=== PATIENT | female | born 1990 | race Caucasian/White ===

== ENCOUNTER 2017-06-10 23:49 | Emergency (ER) | payer OTHER ==
--- NOTE | 2017-06-11 00:20 | PD ---
HPI Chief Complaint Right into the cavity with her stomach Date Seen: Jun 11, 2017 Time Seen: 00:15 Travel History International Travel<30 Days: No Contact w/Intl Traveler<30Days: No Known Affected Area: No History of Present Illness HPI 27-year-old female at 34 weeks 5 days is being seen due to trauma to her abdomen earlier tonight. At approximately 11:30 PM patient ran into an open cabinet door which hit her on the right side of her abdomen. Denies any other trauma and she did not fall. Patient denies any abrasion of the skin or any other injury. Patient has had an uncomplicated and denies any antepartum complications. Patient is experiencing good movement since she 's been here in labor and delivery, denies vaginal bleeding. Para: 1 : 3 History Past Medical History Medical History: Denies Significant Hx Obstetric History Obstetric History Spontaneous vaginal delivery Past Surgical History Narrative Surgical LEEP Family History Family History: Negative Social History Alcohol Use: No Tobacco Use: No Substance Abuse: No Allergies-Medications (Allergen,Severity, Reaction): Coded Allergies: No Known Allergies (Unverified , 11/29/15) Home Meds No Active Prescriptions or Reported Meds Review of Systems Except as stated in HPI: all other systems reviewed are Neg Physical Exam Narrative GENERAL: Well-nourished, well-developed patient. SKIN: Warm and dry. HEAD: Normocephalic and atraumatic. NECK: Supple, trachea midline. No JVD. ABDOMEN/GI: Abdomen soft, non-tender, bowel sounds present, no rebound, no guarding. No trauma or abrasions noted to the abdomen Gravid to [-27] weeks size Fundal Height: [-] GENITOURINARY: External Genitalia: intact and normal in appearance BUS glands: [-] Vaginal exam is deferred Cervix: [-] Dilatation: [-] Effacement: [-] Station: [-] Presentation: [-] Membranes: [intact or ruptured] Uterine Contractions: [-] Single contraction noted FHT's: Category: [1-] Baseline: [-140] Reactive: [Moderate-] Variability: [-Moderate] Decels: [-Absent] EXTREMITIES: No cyanosis or edema. BACK: Nontender without obvious deformity. No CVA tenderness. NEUROLOGICAL: Awake and alert. Motor and sensory grossly within normal limits. Five out of 5 muscle strength in all muscle groups. Normal speech. Data Data Vital Signs Reviewed: Yes MDM Plan 27-year-old female who is at 34 weeks 5 days who experienced mild trauma tonight when running into a cabinet Nonstress test is noted to be reassuring with a category 1 tracing No contractions are noted on the external toco Discussed with patient any concerning symptoms within the next 24 hours to include vaginal bleeding, abdominal pain, contractions, or decreased movement Diagnosis Diagnosis: Primary Impression: 34 weeks gestation of Additional Impression: with abdominal wall injury, antepartum Disposition: DISCHARGE HOME Scripts No Active Prescriptions or Reported Meds Patient Instructions: General Instructions, Labor (ED), Abdominal Pain in (ED) Additional Instructions: RETURN FOR CONTRACTIONS, LOSS OF FLUID (WATER BREAKING), VAGINAL BLEEDING, OR DECREASED MOVEMENT DRINK 8-10 LARGE GLASSES OF WATER EVERY DAY KEEP SCHEDULED APPOINTMENT WITH YOUR PROVIDER Departure Forms: Tests/Procedures Jael Rothman MD Jun 11, 2017 00:20
== END 2017-06-11 00:36 | disposition home or self-care (01) ==
LOC: HOBED 23:49
DX: S39.91XA Unspecified injury of abdomen, initial encounter (principal); Z3A.34 34 weeks gestation of pregnancy; W22.03XA Walked into furniture, initial encounter; Z34.93 Encounter for supervision of normal pregnancy, unspecified, third trimester
CPT/HCPCS: 59025

== ENCOUNTER 2017-07-03 22:44 | Inpatient (IN) | payer OTHER ==
[2017-07-03] MEDS: LACTATED RINGER'S 1000 ML INJ 1,000 ML IV SCH (23:31)
[2017-07-03] MEDS ORDERED: LACTATED RINGER'S 1000 ML INJ 1,000 ML IV PRN (23:31)
[2017-07-03] MEDS ORDERED: LIDOCAINE HCL 1% 50 ML VIAL INFIL PRN (23:45)
[2017-07-03] MEDS ORDERED: MINERAL OIL 10 ML VIAL TOPICAL PRN (23:45)
[2017-07-03] MEDS ORDERED: SODIUM CHLORID 0.9% 500 ML INJ 500 ML IV PRN (23:45)
[2017-07-03] MEDS ORDERED: OXYTOCIN 30 UNITS-500ML PREMIX 500 ML IV ONE (23:45)
[2017-07-03] MEDS ORDERED: PENICILLIN G POTASSIUM INJ 5,000,000 UNITS in SODIUM CHLORIDE 0.9% INJ 100 ML IV ONE (23:45)
[2017-07-03] MEDS ORDERED: LIDOCAINE HCL 1% 50 ML VIAL I-DERMAL PRN (23:45)
[2017-07-03] MEDS ORDERED: CITRIC ACID-SODIUM CITRATE LIQ 30 ML UDC PO SCH (23:45)
--- NOTE | 2017-07-03 23:49 | PD ---
HPI Chief Complaint SROM Date Seen: Jul 03, 2017 Travel History International Travel<30 Days: No Contact w/Intl Traveler<30Days: No Known Affected Area: No History of Present Illness HPI This is a 27y/o at 38w3d who presented to the [facility] with reports of clear leakage of fluid since 10:45p. Some increase in the intensity of contractions since SROM, she is now breathing through them. care with Dr. Wright, care uncomplicated per patient. Para: 1 : 3 Miscarriage: 1 History Past Medical History Medical History: Denies Significant Hx Obstetric History Obstetric History 04/14/10 39w Male [id number] Past Surgical History Narrative Surgical [place] 2012 [place] 01/2016, general anesthesia Surgical History: No Previous Surgery Family History Family History: Negative Social History Alcohol Use: No Tobacco Use: No Substance Abuse: No Allergies-Medications (Allergen,Severity, Reaction): Coded Allergies: No Known Allergies (Unverified , 11/29/15) Home Meds No Active Prescriptions or Reported Meds Review of Systems Except as stated in HPI: all other systems reviewed are Neg Physical Exam Narrative GENERAL: Well-nourished, well-developed patient. SKIN: Warm and dry. HEAD: Normocephalic and atraumatic. EYES: No scleral icterus. No injection or drainage. ENT: No nasal drainage noted. Mucous membranes pink. Airway patent. NECK: Supple, trachea midline. No JVD. CARDIOVASCULAR: Regular rate and rhythm without murmurs, gallops, or rubs. RESPIRATORY: Breath sounds equal bilaterally. No accessory muscle use. BREASTS: Bilateral exam showed no masses , no retractions, no nipple discharge. ABDOMEN/GI: Abdomen soft, non-tender, bowel sounds present, no rebound, no guarding Gravid to 38 weeks size GENITOURINARY: External Genitalia: intact and normal in appearance Cervix: 4/80/-2 per RN, grossly ruptured Membranes: ruptured Uterine Contractions: q 1-2 minutes FHT's: Category: 1 EXTREMITIES: No cyanosis or edema. BACK: Nontender without obvious deformity. No CVA tenderness. NEUROLOGICAL: Awake and alert. Motor and sensory grossly within normal limits. Five out of 5 muscle strength in all muscle groups. Normal speech. Data Data Vital Signs Reviewed: Yes Orders Ob (2e) Additional Admit Info (07/03/17 23:06) Vital Signs (Adult) .ON ADMISSION (07/03/17 23:30) ^ Labor Status (07/03/17 23:30) ^ Non Stress Test (07/03/17 23:30) Admit To Inpatient (07/03/17 ) Code Status (07/03/17 23:31) Vital Signs (Adult) .Per protocol (07/03/17 23:31) Activity Oob Ad Kyra (07/03/17 23:31) Heart (07/03/17 23:31) Amnioinfusion (07/03/17 23:31) Urinary Catheter Management .ONCE (07/03/17 23:31) Diet Liquid (07/04/17 Breakfast) Lactated Ringer's 1000 Ml Inj (Lr 1000 M (07/03/17 23:31) Lactated Ringer's 1000 Ml Inj (Lr 1000 M (07/03/17 23:31) Sodium Chlorid 0.9% 500 Ml Inj (Ns 500 M (07/03/17 23:45) Sodium Chlor 0.9% 1000 Ml Inj (Ns 1000 M (07/03/17 23:51) Lidocaine 1% Inj (50 Ml) (Xylocaine 1% I (07/03/17 23:45) Citric Acid-Sodium Citrate Liq (Bicitra (07/03/17 23:45) Fentanyl Inj (Fentanyl Inj) (07/03/17 23:45) Fentanyl Inj (Fentanyl Inj) (07/03/17 23:45) Penicillin G Potassium Inj (Pfizerpen-G (07/03/17 23:45) Penicillin G Potassium Inj (Pfizerpen-G (07/04/17 03:45) Complete Blood Count With Diff (07/03/17 23:31) Hold Clot (07/03/17 23:31) Abo/Rh Blood Type (07/03/17 23:31) Urinalysis - C+S If Indicated (07/03/17 23:31) Resp Oxygen Non Rebreathe Mask (07/03/17 ) ^ Epidural / Intrathecal Infus (07/03/17 23:31) Oxytocin 30 Units-500ml Premix (Pitocin (07/03/17 23:45) Lidocaine 1% Inj (50 Ml) (Xylocaine 1% I (07/03/17 23:45) Light Mineral Oil (Muri-Lube Oil) (07/03/17 23:45) Inpatient Certification (07/03/17 ) Specimen To Be Collected PRN (07/03/17 23:31) MDM Medical Record Reviewed: No Narrative Course / MDM 27y/o at 38w3d who presented with SROM at 10:45p, clear. -GBS +, for PCN -admit for delivery -Dr. Wright aware Diagnosis Diagnosis: Primary Impression: 38 weeks gestation of Additional Impression: PROM with onset of labor within 24 hours of rupture Scripts No Active Prescriptions or Reported Meds Leonor Hamilton MD Jul 03, 2017 23:49
[2017-07-03] MEDS ORDERED: SODIUM CHLOR 0.9% 1000 ML INJ 1,000 ML IV PRN (23:51)
[2017-07-04] VITALS (16 sets, daily range): BP systolic 95–124; BP diastolic 63–96; PULSE 80–106; RESP 16–18; TEMP 97.7–98.2; O2SAT 98
[2017-07-04] MEDS ORDERED: fentaNYL 2MCG-BUPIV 0.125% INJ 100 ML ONE (00:32)
[2017-07-04 00:39] LABS: AUTOMATED NEUTROPHIL # 12.2 TH/MM3 (1.8-7.7); BASOPHIL # 0.1 TH/MM3 (0-0.2); BASOPHIL % 0.6 % (0.0-2.0); EOSINOPHIL # 0.1 TH/MM3 (0-0.4); EOSINOPHIL % 0.6 % (0.0-4.0); HEMATOCRIT 33.2 % (35.0-46.0); HEMO FLAGS DIFF FINAL; LYMPH % 18.2 % (9.0-44.0); MEAN CELL VOLUME 88.4 FL (80.0-100.0); MEAN CORPUSCULAR HEMOGLOBIN 30.8 PG (27.0-34.0); MEAN CORPUSCULAR HGB CONC 34.8 % (32.0-36.0); MONO % 6.3 % (0.0-8.0); NEUT % 74.3 % (16.0-70.0); PLATELET COUNT 280 TH/MM3 (150-450); RED BLOOD COUNT 3.75 MIL/MM3 (4.00-5.30); RED CELL DISTRIBUTION WIDTH 12.7 % (11.6-17.2); WHITE BLOOD COUNT 16.4 TH/MM3 (4.0-11.0)
[2017-07-04] MEDS ORDERED: BUPIVACAINE HCL PF 0.25% 10 ML VIAL ONE ×2 (00:40→00:46)
[2017-07-04 00:48] LABS: BACTERIA, URINE OCC /hpf; BLOOD, URINE TRACE (NEG); COMMENT (UR) CULTURE INDICATED; CULTURE IF INDICATED CULTURE INDICATED; GLUCOSE,URINE NEG (NEG); HYALINE CAST, URINE 3 /lpf (RARE); KETONE, URINE NEG (NEG); NITRITE,URINE NEG (NEG); PH, URINE 6.5 (5.0-8.5); SQUAMOUS EPITHELIAL CELL URINE 5 /hpf (0-5); URINE COLOR LIGHT-YELLOW (YELLW/STRAW)
[2017-07-04] MEDS ORDERED: NO SYSTEM NARCOTICS PRN (01:00)
[2017-07-04] MEDS ORDERED: fentaNYL 2MCG-BUPIV 0.125% 100 ML EPIDURAL SCH (01:00)
[2017-07-04] MEDS ORDERED: DO NOT ADMINISTER ANTICOAGULANTS PRN (01:00)
--- NOTE | 2017-07-04 01:14 | HHI.DCPOC ---
Discharge Care Plan Diagnosis: (1) 38 weeks gestation of Report Symptoms to Your Doctor -Temperature above 100.5 degrees -Redness, of incision or excessive or foul smelling drainage -Unusual pain or calf pain -Increased vaginal bleeding -Painful or difficulty urinating -Feelings of extreme sadness or anxiety after 2 weeks Goals to Promote Your Health * To prevent worsening of your condition and complications * To maintain your health at the optimal level Directions to Meet Your Goals Take your medications as prescribed Follow your dietary instruction Follow activity as directed Ensure plenty of rest for recovery Drink fluids for hydration Keep your appointments as scheduled Take your immunizations and boosters as scheduled If your symptoms worsen call your PCP, if no PCP go to Urgent Care Center or Emergency Room Smoking is Dangerous to Your Health. Avoid second hand smoke Call the 24-hour crisis hotline for domestic abuse at Germain Wright MD Jul 04, 2017 01:14
[2017-07-04] MEDS ORDERED: ePHEDrine/NS 25 MG/5 ML SYR IV PRN (01:45)
--- NOTE | 2017-07-04 02:07 | PD.OB.DELI ---
Delivery Date: Jul 04, 2017 Anesthesia: Epidural Episiotomy: None Vaginal Delivery: Normal, Spontaneous Presentation: Occiput anterior Nuchal Cord: None Delayed cord clamping (45 sec): Yes : Male, Single One Minute : 9 Five Minute : 10 Weight: 7# 7oz Placenta: Spontaneous delivery, Not Intact, 3 vessel cord Laceration: Vaginal laceration, 1 deg Repair: Chromic running Estimated blood loss: 300 Germain Wright MD Jul 04, 2017 02:07
[2017-07-04] MEDS ORDERED: SODIUM CHLORIDE 0.9% FLUSH 10 ML FLUSH IV FLUSH PRN (02:15)
[2017-07-04] MEDS ORDERED: ZOLPIDEM TARTRATE 5 MG TAB PO PRN (02:15)
[2017-07-04] MEDS ORDERED: ALUMINUM/MAGNESIUM/SIMETH 30 ML CUP PO PRN (02:15)
[2017-07-04] MEDS ORDERED: BENZOCAINE 20% TOPICAL SPRAY 60 ML CAN TOPICAL PRN (02:15)
[2017-07-04] MEDS ORDERED: oxyCODONE/ACETAMINOPHEN 5 MG/325 MG TAB PO PRN ×2 (02:15)
[2017-07-04] MEDS ORDERED: ONDANSETRON ODT 4 MG TAB PO PRN (02:15)
[2017-07-04] MEDS ORDERED: OXYTOCIN 30 UNITS-500ML PREMIX 500 ML IV SCH (02:15)
[2017-07-04] MEDS: WITCH HAZEL 50%/GLYCERIN 12.5% 40 PAD JAR TOPICAL PRN ×2 (04:27→16:28)
[2017-07-04] MEDS: IBUPROFEN 600 MG TAB PO PRN ×4 (04:28→22:30)
[2017-07-04] MEDS: LACTATED RINGER'S 1000 ML INJ 1,000 ML IV SCH ×2 (07:07→15:31)
[2017-07-04] MEDS: PENICILLIN G POTASSIUM INJ 2,500,000 UNITS in SODIUM CHLORIDE 0.9% INJ 100 ML IV SCH ×2 (07:07→16:00)
[2017-07-04] MEDS: SODIUM CHLORIDE 0.9% FLUSH 10 ML FLUSH IV FLUSH SCH (09:00)
[2017-07-04] MEDS: DOCUSATE SODIUM 50 MG/SENNA 8.6 MG TAB PO PRN ×2 (11:07→22:30)
[2017-07-04] MEDS ORDERED: DIPHTH/TETANUS/ACEL PERTUSSIS (BOOSTER) 0.5 ML VIAL/PFS IM ONE (16:00)
[2017-07-04] MEDS ORDERED: MEASLES, MUMPS, RUBELLA VACCINE 0.5 ML VIAL SQ ONE (16:00)
[2017-07-04] MEDS: ACETAMINOPHEN 325 MG TAB PO PRN ×2 (16:28→22:30)
[2017-07-05] MEDS: IBUPROFEN 600 MG TAB PO PRN ×3 (05:55→18:17)
[2017-07-05] MEDS: ACETAMINOPHEN 325 MG TAB PO PRN ×3 (05:55→18:17)
[2017-07-05 08:45] VITALS: BP 99/67; PULSE 68; RESP 16; TEMP 97.6
[2017-07-05] MEDS: DOCUSATE SODIUM 50 MG/SENNA 8.6 MG TAB PO PRN (12:09)
[2017-07-05] MEDS: PENICILLIN G POTASSIUM INJ 2,500,000 UNITS in SODIUM CHLORIDE 0.9% INJ 100 ML IV SCH ×2 (20:00→23:10)
[2017-07-05] MEDS: SODIUM CHLORIDE 0.9% FLUSH 10 ML FLUSH IV FLUSH SCH (21:00)
[2017-07-05] MEDS: LACTATED RINGER'S 1000 ML INJ 1,000 ML IV SCH (21:02)
[2017-07-05 21:30] VITALS: BP 110/73; PULSE 89; RESP 20; TEMP 98.3
[2017-07-06] MEDS: ACETAMINOPHEN 325 MG TAB PO PRN ×3 (00:17→11:48)
[2017-07-06] MEDS: IBUPROFEN 600 MG TAB PO PRN ×3 (00:18→11:48)
[2017-07-06] MEDS: PENICILLIN G POTASSIUM INJ 2,500,000 UNITS in SODIUM CHLORIDE 0.9% INJ 100 ML IV SCH ×2 (01:56→06:02)
[2017-07-06] MEDS: LACTATED RINGER'S 1000 ML INJ 1,000 ML IV SCH (06:02)
[2017-07-06 08:25] VITALS: BP 115/75; PULSE 85; RESP 16; TEMP 98.3
--- NOTE | 2017-07-06 08:57 | HHI.OB ---
Subjective Post Day: 2 Remarks doing well dc home Objective Vitals/I&O Vital Signs Date Time Temp Pulse Resp B/P Pulse Ox O2 Delivery O2 Flow Rate FiO2 07/05/17 21:30 98.3 89 20 110/73 Objective Remarks GENERAL: Well-nourished, well-developed patient. ABDOMEN/GI: Abdomen soft, non-tender. Fundus: Firm, non-tender at umbilicus. GENITOURINARY: Light to moderate bleeding. EXTREMITIES: No cyanosis or edema, non-tender, without signs of DVT. Medications and IVs Current Medications Medications (Trade) Dose Ordered Sig/Sandra Route Start Time Stop Time Status Last Admin Lactated Ringer's 1,000 ml @ 125 mls/hr Q8H IV 07/03/17 23:31 07/03/17 23:31 Lactated Ringer's 1,000 ml @ 3,000 mls/hr Q20M PRN IV 07/03/17 23:31 (NS 1000 ml Inj) 1,000 ml @ 100 mls/hr Q10H PRN IV 07/03/17 23:51 (fentaNYL INJ) 50 mcg Q1H PRN IV PUSH 07/03/17 23:45 Fentanyl Citrate 100 mcg 100 mcg Q1H PRN IV PUSH 07/03/17 23:45 (Pfizerpen-G Inj/ NS Inj) 100 ml @ 200 mls/hr Q4H IV 07/04/17 04:00 Mineral Oil 10 ml 10 ml UNSCH PRN TOPICAL 07/03/17 23:45 (fentaNYL 2MCG-BUPIV 0.125% INJ) 100 ml @ 0 mls/hr TITRATE EPIDURAL 07/04/17 01:00 (NS Flush) 2 ml BID IV FLUSH 07/04/17 09:00 (NS Flush) 2 ml UNSCH PRN IV FLUSH 07/04/17 02:15 (Tylenol) 650 mg Q4H PRN PO 07/04/17 02:15 07/06/17 06:04 (Motrin) 600 mg Q6H PRN PO 07/04/17 02:15 07/06/17 06:04 (Percocet 5-325 Mg) 1 tab Q4H PRN PO 07/04/17 02:15 (Percocet 5-325 Mg) 2 tab Q4H PRN PO 07/04/17 02:15 (Americaine 20% Top Spr) 1 spray Q4H PRN TOPICAL 07/04/17 02:15 07/04/17 04:27 (Tucks Pads) 1 applic QID PRN TOPICAL 07/04/17 02:15 07/04/17 16:28 (Roshni-Colace) 2 tab Q12H PRN PO 07/04/17 02:15 07/05/17 12:09 (Ambien) 5 mg HS PRN PO 07/04/17 02:15 (Mag-Al Plus Susp Liq) 15 ml Q8H PRN PO 07/04/17 02:15 (Zofran Odt) 4 mg Q6H PRN PO 07/04/17 02:15 Assessment/Plan Problem List: (1) Spontaneous vaginal delivery Assessment and Plan [facility] Germain Wright MD Jul 06, 2017 08:56
[2017-07-06] MEDS ORDERED: OXYC1TAB63 PO (09:06)
--- NOTE | 2017-07-06 09:08 | HHI.DS ---
Admission Date Jul 03, 2017 at 23:06 Discharge Date: Jul 06, 2017 Admitting Diagnosis Diagnosis: (1) Spontaneous vaginal delivery Delivery Date: Jul 04, 2017 Vaginal Delivery: Normal, Spontaneous Infant: Male, Single Brief History This is a 27y/o at 38w3d who presented to the [facility] with reports of clear leakage of fluid since 10:45p. Some increase in the intensity of contractions since SROM, she is now breathing through them. care with Dr. Wright, care uncomplicated per patient. Hospital Course patient came fro work with SROM and delivered on 07/04 she has done well post Pt Condition on Discharge: Good Discharge Disposition: Discharge Home Discharge Instructions Diet Instructions: As Tolerated, No Restrictions Activities You Can Perform: Pelvic Rest Activities to Avoid: Driving for 24 hrs Follow up Referrals: [facility] - 2 Weeks @ [facility] with Germain Wright MD New Medications: Oxycodone-Acetaminophen (Oxycodone-Acetaminophen) 5-325 mg Tab 1 TAB PO Q4H PRN PAIN SCALE 3 TO 5 #20 TAB Germain Wright MD Jul 06, 2017 09:08
== END 2017-07-06 13:58 | disposition home or self-care (01) | DRG 775 ==
LOC: HOBED 22:44 → H2EB 23:06 → H1EA 07-04 04:40
PROVIDERS: ADMIT Obstetrics & Gynecology; ATTEND Obstetrics & Gynecology
PROC: 10E0XZZ Delivery of Products of Conception, External Approach (ICD-10-PCS; principal; 2017-07-04)
PROC: 0HQ9XZZ Repair Perineum Skin, External Approach (ICD-10-PCS; 2017-07-04)
DX: O42.02 Full-term premature rupture of membranes, onset of labor within 24 hours of rupture (principal); O71.4 Obstetric high vaginal laceration alone; Z37.0 Single live birth; O99.824 Streptococcus B carrier state complicating childbirth; Z3A.38 38 weeks gestation of pregnancy
CPT/HCPCS: 81001; 85025; 86900; 86901; 87086; J2540; J3010; J7120